=== PATIENT | male | born 1960 | race Caucasian/White ===

== ENCOUNTER 2017-03-03 15:05 | Emergency (ER) | payer OTHER, BC ==
[2017-03-03 15:15] VITALS: BP 135/99
[2017-03-03] MEDS ORDERED: Bacitracin/Neomycin/Polymyxin B Oint 0.9 GM U/D Packet ONE (15:37)
--- NOTE | 2017-03-03 15:45 | EDM.PDOC ---
ED HPI GENERAL MEDICAL PROBLEM - General Chief Complaint: Laceration Stated Complaint: LT LITTLE FINGER Time Seen by Provider: 03/03/17 15:20 Source of Information: Reports: Patient History Limitations: Reports: No Limitations - History of Present Illness INITIAL COMMENTS - FREE TEXT/NARRATIVE: Patient presents with complaints of left finger pain. Crushed it on a rafy at work. Did avulse the skin, bled for a considerable amount of time due to being on Coumadin. Does have good range of motion but with discomfort. Has noted blood under the nail now as well. Tetanus is current. 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(s) Left 5-Little finger Pain Score (Numeric/FACES): 3 - Related Data Allergies Allergy/AdvReac Type Severity Reaction Status Date / Time codeine Allergy Syncope Verified 03/03/17 15:15 morphine Allergy Syncope Verified 03/03/17 15:15 Home Meds: Home Meds Hydrocodone/Acetaminophen [Hydrocodon-Acetaminophen 5-325] 5 mg PO BID PRN 03/02 [History] Hydrocodone/Acetaminophen [Lortab 7.5-325 mg Tablet] 7.5 mg PO Q6HR PRN [History] Phenytoin Sodium Extended [Dilantin] 300 mg PO BID 03/02/15 [History] Warfarin [Coumadin] 10 mg PO DAILY 03/02/15 [History] Past Medical History 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 Respiratory History: Reports: Sleep Apnea Neurological History: Reports: Seizure Hematologic History: Reports: Anticoagulation Therapy - Past Surgical History Cardiovascular Surgical History: Reports: Other (See Below) Other Cardiovascular Surgeries/Procedures: IVC filter Social & Family History - Tobacco Use Smoking Status *Q: Former Smoker Years of Tobacco use: 30 Used Tobacco, but Quit: Yes Month Tobacco Last Used: 2010 - Caffeine Use Caffeine Use: Reports: Coffee, Energy Drinks, Tea - Recreational Drug Use Recreational Drug Use: No ED ROS GENERAL - Review of Systems Review Of Systems: ROS reveals no pertinent complaints other than HPI. ED EXAM, SKIN/RASH Exam: See Below Exam Limited By: No Limitations General Appearance: Alert, WD/WN, No Apparent Distress Extremities: Normal Range of Motion, Normal Capillary Refill, Redness Neurological: Alert, Oriented Location, Skin: Other (left 5th finger has 0.3 area of skin that is avulsed. Scant amount of bleeding at this point. Good flexion and extension of his distal joint of his left 5th digit.) Characteristics: Other (irregular) Course - Vital Signs Last Recorded V/S: Last Vital Signs Temp 98.8 F 03/03/17 15:11 Pulse 82 03/03/17 15:11 Resp 18 03/03/17 15:11 BP 135/99 H 03/03/17 15:11 Pulse Ox 96 03/03/17 15:11 - Orders/Labs/Meds Orders: Active Orders 24 hr Category Date Time Status Fingers Fifth Digit Lt F4 [CR] Stat Exams 03/03/17 15:24 Taken Meds: Medications Discontinued Medications Generic Name Dose Route Start Last Admin Trade Name Freq PRN Reason Stop Dose Admin Neomycin/Polymyxin/Bacitracin Confirm 03/03/17 15:37 03/03/17 15:40 Triple Antibiotic Oint Administered 03/03/17 15:38 1 each Dose Administration 1 each .ROUTE .STK-MED ONE - Re-Assessments/Exams Free Text/Narrative Re-Assessment/Exam: 03/03/17 Xrays of finger are negative Departure - Departure Time of Disposition: 15:44 Disposition: Home, Self-Care 01 Condition: Good Clinical Impression: Abrasion, Contusion - Discharge Information Instructions: Puncture Wound, [id number] Referrals: PCP,None [Primary Care Provider] - Forms: ED Department Discharge Additional Instructions: 1. Keep wound clean and dry 2. Keep wound covered when needed 3. Follow up if any redness, drainage, concerns of infection 4. Contact us with any questions. - My Orders Last 24 Hours: My Active Orders 03/03/17 15:24 Fingers Fifth Digit Lt F4 [CR] Stat - Assessment/Plan Last 24 Hours: My Active Orders 03/03/17 15:24 Fingers Fifth Digit Lt F4 [CR] Stat
== END 2017-03-03 16:05 | disposition home or self-care (01) ==
LOC: CC.ED 15:05
DX: S61.207A Unspecified open wound of left little finger without damage to nail, initial encounter (principal); T14.8 Other injury of unspecified body region; Z88.5 Allergy status to narcotic agent; Z79.01 Long term (current) use of anticoagulants; Z86.79 Personal history of other diseases of the circulatory system; Z87.891 Personal history of nicotine dependence; W23.0XXA Caught, crushed, jammed, or pinched between moving objects, initial encounter
CPT/HCPCS: 73140-F4; 99282

== ENCOUNTER 2017-06-19 09:11 | Emergency (ER) | payer BC ==
[2017-06-19 09:18] VITALS: BP 149/109
--- NOTE | 2017-06-19 11:07 | EDM.PDOC ---
ED HPI GENERAL MEDICAL PROBLEM - General Chief Complaint: Neurological Problem Stated Complaint: PASSED OUT AND FELL ON HIS FACE Time Seen by Provider: 06/19/17 09:35 Source of Information: Reports: Patient History Limitations: Reports: No Limitations - History of Present Illness INITIAL COMMENTS - FREE TEXT/NARRATIVE: Doron is a pleasant 56 year old male who presents to the ER via private vehicle after suffering a seizure that caused him to fall. He does report a history of seizures, but he has not had one for about 3 years. He reports he has had "test after test" in the past but they have never found a reason for his seizures. He reports he typically can feel a seizure coming on as he experiences some nausea and lightheadedness prior. He did experience these symptoms prior to episode today, but reports he did not have enough time to sit down. He reports he was at work, felt the symptoms, tried to sit down, and the next thing he remembers he woke up on the floor. He reports he must've landed face first, as he knocked out his front tooth and has swelling to his forehead, nose, and lip. He did have some bleeding. He is on Coumadin for a bleeding disorder. He has been taking 300 mg of dilantin twice daily. His last dilantin level was subtherapeutic. He has not had it checked in over a year. He reports he has been taking his seizure medications as directed. Did not miss any doses. Onset: Sudden Onset Date: 06/19/17 Onset Time: 09:00 Duration: Resolved Prior to Arrival Location: Reports: Head Associated Symptoms: Reports: Seizure. Denies: Confusion, Chest Pain, Cough, cough w sputum, Diaphoresis, Fever/Chills, Headaches, Loss of Appetite, Malaise , Nausea/Vomiting, Rash, Shortness of Breath, Syncope, Weakness Middle Face Pain Score (Numeric/FACES): 4 - Related Data Allergies Allergy/AdvReac Type Severity Reaction Status Date / Time codeine Allergy Syncope Verified 06/19/17 09:22 morphine Allergy Syncope Verified 06/19/17 09:22 Home Meds: Home Meds Hydrocodone/Acetaminophen [Hydrocodon-Acetaminophen 5-325] 5 mg PO BID PRN 03/02 [History] Hydrocodone/Acetaminophen [Lortab 7.5-325 mg Tablet] 7.5 mg PO Q6HR PRN [History] Phenytoin Sodium Extended [Dilantin] 300 mg PO BID 03/02/15 [History] Warfarin [Coumadin] 10 mg PO DAILY 03/02/15 [History] levETIRAcetam [Keppra] 500 mg PO BID #30 tablet 06/19/17 [Rx] Past Medical History 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 Respiratory History: Reports: Sleep Apnea Neurological History: Reports: Seizure Hematologic History: Reports: Anticoagulation Therapy - Past Surgical History Cardiovascular Surgical History: Reports: Other (See Below) Other Cardiovascular Surgeries/Procedures: IVC filter Social & Family History - Tobacco Use Smoking Status *Q: Never Smoker Years of Tobacco use: 30 Used Tobacco, but Quit: Yes Month Tobacco Last Used: 2010 - Caffeine Use Caffeine Use: Reports: None - Recreational Drug Use Recreational Drug Use: No ED ROS GENERAL - Review of Systems Review Of Systems: See Below Constitutional: Reports: No Symptoms. Denies: Fever, Chills, Malaise, Weakness , Fatigue HEENT: Reports: Dental Pain, Nose Pain. Denies: Ear Discharge, Ear Pain, Eye Pain, Nosebleed, Vision Change Respiratory: Reports: No Symptoms. Denies: Shortness of Breath, Cough Cardiovascular: Reports: No Symptoms. Denies: Chest Pain, Blood Pressure Problem, Claudication, Dyspnea on Exertion, Edema, Lightheadedness, Orthopnea, Palpitations, PND, Syncope Endocrine: Reports: No Symptoms GI/Abdominal: Reports: No Symptoms. Denies: Abdominal Pain, Diarrhea, Nausea, Vomiting : Reports: No Symptoms Musculoskeletal: Reports: No Symptoms Skin: Reports: No Symptoms Neurological: Reports: Headache, Seizure. Denies: Confusion, Dizziness, Numbness, Paresthesia, Pre-Existing Deficit, Syncope, Tingling, Tremors, Trouble Speaking, Difficulty Walking, Weakness, Change in Speech, Gait Disturbance Psychiatric: Reports: No Symptoms Hematologic/Lymphatic: Reports: Other (bleeding disorder, chronic anticoagulation) Immunologic: Reports: No Symptoms - Physical Exam Exam: See Below Exam Limited By: No Limitations General Appearance: Alert, WD/WN, No Apparent Distress Eye Exam: Bilateral Eye: EOMI, Normal Fundi, Normal Inspection, PERRL Ears: Normal External Exam, Normal Canal, Hearing Grossly Normal, Normal TMs Nose: Normal Mucosa, Nasal Tenderness, Nasal Swelling. No: Nasal Deformity Throat/Mouth: Normal Gums, Inflammation (right upper lip), Other (missing left front tooth, patient report was a prosthetic tooth). No: Evidence of Tongue Biting Head Exam: Normocephalic, Facial Abrasions, Facial Tenderness Neck: Normal Inspection, Supple, Non-Tender, Full Range of Motion Respiratory/Chest: No Respiratory Distress, Lungs Clear, Normal Breath Sounds, No Accessory Muscle Use, Chest Non-Tender Cardiovascular: Normal Peripheral Pulses, Regular Rate, Rhythm, No Edema, No Gallop, No JVD, No Murmur, No Rub Neuro Exam (Abbreviated): Alert, Oriented, CN II-XII Intact, Normal Cognition, Normal Gait, Normal Reflexes, No Motor/Sensory Deficits, Memory Loss Recent Events (does not remember falling and hitting floor). No: Inattentive, Confused , Disoriented, Slow to Respond, Unresponsive, Abnormal Gait, Abnormal Reflexes, Sensory/Motor Deficit Back Exam: Normal Inspection, Full Range of Motion Psychiatric: Normal Affect, Normal Mood Course - Vital Signs Last Recorded V/S: Last Vital Signs Temp 97.7 F 06/19/17 09:15 Pulse 100 06/19/17 09:15 Resp 20 06/19/17 09:15 BP 149/109 H 06/19/17 09:15 Pulse Ox 95 06/19/17 09:15 - Orders/Labs/Meds Orders: Active Orders 24 hr Category Date Time Status Head wo Cont [CT] Stat Exams 06/19/17 09:30 Taken Nasal Bone Min 3V [CR] Stat Exams 06/19/17 09:29 Taken PHENYTOIN [REF] Stat Lab 06/19/17 09:55 Received Labs: Laboratory Tests 06/19/17 Range/Units 09:52 PT 25.4 H (9.7-12.3) SEC INR 2.29 H (0.92-1.18) - Radiology Interpretation Free Text/Narrative:: Head Ct report called by radiology. No acute hemorrhage identifity. Normal head CT. CT Results Date: 06/19/17 CT Results Time: 10:10 - Re-Assessments/Exams Free Text/Narrative Re-Assessment/Exam: Patient does not want to have lab work done due to cost. Discussed that it is important to check INR, as well as dilantin level. Patient agreeable to these labs only. Consulted with Tk Lima V (neurology). She recommends starting Keppra and weaning patient off of Dilantin, as he is already at a high dose of dilantin and has been subtherapeutic. She also recommends giving patient 1-2 days of ativan 2 mg BID until Keppra has been taken for a few doses. Recommends referral to Epilepsy clinic and NO driving. Head CT, Nose Xray results, and neurology recommendations discussed with patient who verbalized understanding. Departure - Departure Time of Disposition: 11:04 Disposition: Home, Self-Care 01 Condition: Good Clinical Impression: Seizure Abrasion head Qualifiers: Encounter type: initial encounter Qualified Code(s): S00.91XA - Abrasion of unspecified part of head, initial encounter - Discharge Information Prescriptions: levETIRAcetam [Keppra] 500 mg PO BID #30 tablet Instructions: Seizure, Adult, [id number] Referrals: Dileep Simental PA-C [Physician Plant Superintendent] - Forms: ED Department Discharge Additional Instructions: Ativan twice daily for the next two days. This will make you sleepy. Start taking Keppra twice daily. Ice to lip, nose, and forehead a couple times a day until swelling resolves. Tylenol as needed for pain. NO DRIVING until neurology ok's. 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 Referral placed to neurology at [facility]. Will call with appointment. Follow up with PCP in next week. - Problem List & Annotations (1) Seizure SNOMED Code(s): 50827095 Code(s): R56.9 - UNSPECIFIED CONVULSIONS Status: Acute (2) Abrasion head SNOMED Code(s): 776319580 Code(s): S00.91XA - ABRASION OF UNSPECIFIED PART OF HEAD, INITIAL ENCOUNTER Status: Acute Qualifiers: Encounter type: initial encounter Qualified Code(s): S00.91XA - Abrasion of unspecified part of head, initial encounter - Problem List Review Problem List Initiated/Reviewed/Updated: Yes - My Orders Last 24 Hours: My Active Orders 06/19/17 09:29 Nasal Bone Min 3V [CR] Stat 06/19/17 09:30 Head wo Cont [CT] Stat 06/19/17 09:55 PHENYTOIN [REF] Stat - Assessment/Plan Last 24 Hours: My Active Orders 06/19/17 09:29 Nasal Bone Min 3V [CR] Stat 06/19/17 09:30 Head wo Cont [CT] Stat 06/19/17 09:55 PHENYTOIN [REF] Stat Plan: Will start patient on Keppra 500 mg PO BID. Will give patient 2 day supply of Ativan 2 mg BID to take until Keppra is effective. Patient will need to be weaned off of Dilantin over at least 4 week time frame due to alf use. Referral to Epilepsy Clinic at [facility]. Patient CANNOT drive until seen by neurologist. Follow up with PCP within next 5 days. Return to ER if increased seizure activity.
== END 2017-06-19 11:12 | disposition home or self-care (01) ==
LOC: CC.ED 09:11
DX: R56.9 Unspecified convulsions (principal); S00.91XA Abrasion of unspecified part of head, initial encounter; Z79.01 Long term (current) use of anticoagulants; Z87.891 Personal history of nicotine dependence; Z88.5 Allergy status to narcotic agent; W19.XXXA Unspecified fall, initial encounter
CPT/HCPCS: 36415; 70160; 70450; 80185; 85610; 99284

== ENCOUNTER → 2018-05-31 | Day surgery (SDC) | payer OTHER, BC ==
[~2018-05-31] MED LIST: Lactated Ringers 1,000 ML IV SCH; Lidocaine 1% with EPINEPHrine 1:100,000 20 ML MDV ONE; Midazolam 1 MG/ML 2 ML SDV IV ONE; Ondansetron 4 MG/2 ML SDV IV ONE; Propofol 200 MG/20 ML SDV IV ONE; ceFAZolin 1 GM Vial ONE; fentaNYL 100 MCG/2 ML SDV IV ONE
[2018-05-31 12:33] VITALS: BP 142/96
--- NOTE | 2018-05-31 12:47 | OR ---
DATE OF OPERATION: 05/31/2018 PREOPERATIVE DIAGNOSIS: UMBILICAL HERNIA. POSTOPERATIVE DIAGNOSIS: UMBILICAL HERNIA. SURGEON: Javon Johnson MD PROCEDURE: OPEN REPAIR OF LARGE UMBILICAL HERNIA. ANESTHESIA: General. ESTIMATED BLOOD LOSS: Minimum. SPECIMEN: None. INDICATION FOR PROCEDURE: This 57-year-old male has a large umbilical hernia that is symptomatic. DESCRIPTION OF PROCEDURE: After adequate preparation, an infraumbilical semicircular incision was made below the umbilicus, and this was carried down to the linea alba. The hernia sac was dissected free from the umbilical skin and the fascial margins were incised. This allowed me to reduce the hernia back into the abdominal cavity. The sac was not violated. The hernia defect measured about 2.5 cm. He had good thick fascial margins. I decided not to use mesh. Interrupted 0 Ethibond sutures were used to close this hernia in a transverse fashion, about 8 stitches were used. This was reinforced with an 0 Vicryl over the top of this, [id number], through the fascial layers and tied to help relieve tension on the Ethibond sutures. The subcutaneous space was closed with Vicryl and the skin with Monocryl. The wound was dressed with Dermabond. BOUCHRA/ELEANOR /[id number]
== END ==
LOC: CC.SDS 07:53
PROVIDERS: ATTEND Surgery
DX: K42.9 Umbilical hernia without obstruction or gangrene (principal)
CPT/HCPCS: 36415; 49585; 85610; J2250; J2405; J2704; J3010

== ENCOUNTER → 2018-08-02 | Day surgery (SDC) | payer OTHER ==
[~2018-08-02] MED LIST changes: -Lidocaine 1% with EPINEPHrine 1:100,000 20 ML MDV ONE; -Midazolam 1 MG/ML 2 ML SDV IV ONE; -Ondansetron 4 MG/2 ML SDV IV ONE; -Propofol 200 MG/20 ML SDV IV ONE; -ceFAZolin 1 GM Vial ONE; -fentaNYL 100 MCG/2 ML SDV IV ONE
[2018-08-02 10:59] VITALS: BP 128/86
== END ==
LOC: CC.SDS 09:35
PROVIDERS: ATTEND Surgery
DX: T81.89XA Other complications of procedures, not elsewhere classified, initial encounter (principal); Z53.8 Procedure and treatment not carried out for other reasons
CPT/HCPCS: 36415; 85610; J7120

== ENCOUNTER 2023-08-29 08:25 | Emergency (ER) | payer BC ==
[2023-08-29 11:12] VITALS: BP 175/100; PULSE 71
[2023-08-29 11:13] LABS: BASOPHILS PERCENT AUTO 0.7 % (0-1); EOSINOPHILS PERCENT AUTO 3.5 % (0-6); HEMATOCRIT 45.3 % (42.0-52.0); HEMOGLOBIN 15.1 g/dL (14.0-18.0); IMMATURE GRAN PERCENT AUTO 0.2 % (0.0-4.9); LYMPHOCYTES ABSOLUTE AUTO 1.56 10^3/uL (0.60-5.00); LYMPHOCYTES PERCENT AUTO 28.6 % (24-44); MEAN CORPUSCULAR HEMOGLOBIN 29.9 pg (27.0-32.0); MEAN CORPUSCULAR HGB CONC 33.3 g/dL (32.0-36.0); MEAN CORPUSCULAR VOLUME 89.7 fL (83.0-97.0); MONOCYTES PERCENT AUTO 9.4 % (0-10); NEUTROPHILS ABSOLUTE AUTO 3.14 x10^3/uL (1.80-8.00); NEUTROPHILS PERCENT AUTO 57.6 % (41-71); PLATELET COUNT,PLT 177 10^3/uL (150-400); RED BLOOD CELL COUNT 5.05 x10^6/uL (4.50-6.00); WHITE BLOOD CELL COUNT,WBC 5.5 10^3/uL (4.0-11.0)
[2023-08-29 11:14] LABS: BASOPHILS ABSOLUTE AUTO 0.04 10^3/uL (0.00-0.50); EOSINOPHILS ABSOLUTE AUTO 0.19 10^3/uL (0.00-1.50); IMMATURE GRAN ABSOLUTE AUTO 0.01 10^3/uL (0.00-0.49); INR 2.01 (0.92-1.18); MONOCYTES ABSOLUTE AUTO 0.51 10^3/uL (0.00-1.50); PROTHROMBIN TIME 20.4 SEC (9.3-11.3)
[2023-08-29 11:15] LABS: ALBUMIN 3.3 g/dL (3.4-5.0); EST CRCL DRUG DOSING (CG) 85.14 mL/min; POTASSIUM,K 4.3 mEq/L (3.5-5.0)
[2023-08-29 11:16] LABS: BILIRUBIN TOTAL 0.8 mg/dL (0.0-1.0); PROTEIN TOTAL,TP 7.3 g/dL (6.4-8.2)
[2023-08-29 11:17] LABS: C-REACTIVE PROTEIN 0.49 mg/dL (<=0.50)
== END 2023-08-29 11:30 | disposition critical access hospital (66) ==
LOC: CC.ED 08:25
DX: K92.2 Gastrointestinal hemorrhage, unspecified (principal); I10 Essential (primary) hypertension; Z88.5 Allergy status to narcotic agent; Z88.8 Allergy status to other drugs, medicaments and biological substances; Z79.01 Long term (current) use of anticoagulants; Z79.899 Other long term (current) drug therapy
CPT/HCPCS: 36415; 74177; 80053; 82272; 83735; 85025; 85610; 86140; 99285

== ENCOUNTER 2023-12-19 10:47 | Day surgery (SDC) | payer BC ==
[2023-12-19 11:28] VITALS: BP 131/84; PULSE 82
[2023-12-19] MEDS: Lidocaine 1% 5 ML VIAL INJECT ONE ×2 (11:45→11:46)
== END 2023-12-19 12:24 | disposition home or self-care (01) ==
LOC: CC.SDS 10:47
PROVIDERS: ATTEND Family Medicine
DX: I87.2 Venous insufficiency (chronic) (peripheral) (principal); I83.92 Asymptomatic varicose veins of left lower extremity; Z88.5 Allergy status to narcotic agent; Z79.899 Other long term (current) drug therapy; Z79.01 Long term (current) use of anticoagulants; Z86.16 Personal history of COVID-19
CPT/HCPCS: C1888; J3490

== ENCOUNTER 2023-12-26 11:01 | Day surgery (SDC) | payer BC ==
[2023-12-26] MEDS: Lidocaine 1% 30 ML SDV SUBCUT ONE ×3 (12:08→12:24)
[2023-12-26 13:27] VITALS: BP 169/105; PULSE 77
== END 2023-12-26 13:13 | disposition home or self-care (01) ==
LOC: CC.SDS 11:01
PROVIDERS: ATTEND Family Medicine
DX: I87.2 Venous insufficiency (chronic) (peripheral) (principal)
CPT/HCPCS: 36482; C1888; J3490

== ENCOUNTER → 2024-01-16 | Day surgery (SDC) | payer BC ==
[2024-01-16] MEDS: Lidocaine 1% 5 ML VIAL INJECT ONE (12:02)
== END ==
LOC: CC.SDS 11:30
PROVIDERS: ATTEND Family Medicine
DX: I87.2 Venous insufficiency (chronic) (peripheral) (principal); I83.91 Asymptomatic varicose veins of right lower extremity; Z88.5 Allergy status to narcotic agent; Z79.899 Other long term (current) drug therapy; Z79.01 Long term (current) use of anticoagulants; Z86.16 Personal history of COVID-19
CPT/HCPCS: C1888; J3490

== ENCOUNTER 2024-03-18 11:14 | Inpatient (IN) | payer BC ==
[2024-03-18 11:56] LABS: BASOPHILS ABSOLUTE AUTO 0.03 10^3/uL (0.00-0.50); BASOPHILS PERCENT AUTO 0.5 % (0-1); EOSINOPHILS ABSOLUTE AUTO 0.31 10^3/uL (0.00-1.50); EOSINOPHILS PERCENT AUTO 4.9 % (0-6); HEMATOCRIT 43.4 % (42.0-52.0); HEMOGLOBIN 14.3 g/dL (14.0-18.0); IMMATURE GRAN ABSOLUTE AUTO 0.02 10^3/uL (0.00-0.49); IMMATURE GRAN PERCENT AUTO 0.3 % (0.0-4.9); LYMPHOCYTES ABSOLUTE AUTO 1.29 10^3/uL (0.60-5.00); LYMPHOCYTES PERCENT AUTO 20.4 % (24-44); MEAN CORPUSCULAR HEMOGLOBIN 29.5 pg (27.0-32.0); MEAN CORPUSCULAR HGB CONC 32.9 g/dL (32.0-36.0); MEAN CORPUSCULAR VOLUME 89.7 fL (83.0-97.0); MONOCYTES ABSOLUTE AUTO 0.47 10^3/uL (0.00-1.50); MONOCYTES PERCENT AUTO 7.4 % (0-10); NEUTROPHILS PERCENT AUTO 66.5 % (41-71); PLATELET COUNT,PLT 273 10^3/uL (150-400); RED BLOOD CELL COUNT 4.84 x10^6/uL (4.50-6.00); WHITE BLOOD CELL COUNT,WBC 6.3 10^3/uL (4.0-11.0)
[2024-03-18 12:10] LABS: ALBUMIN 3.1 g/dL (3.4-5.0); BILIRUBIN TOTAL 0.7 mg/dL (0.0-1.0); C-REACTIVE PROTEIN 3.12 mg/dL (<=0.50); CALCIUM 8.7 mg/dL (8.4-10.1); CREATININE 1.2 mg/dL (0.7-1.3); EST CRCL DRUG DOSING (CG) 70.06 mL/min; MAGNESIUM 1.6 mg/dL (1.8-2.4); PROTEIN TOTAL,TP 7.5 g/dL (6.4-8.2)
[2024-03-18 12:17] LABS: INR 2.83 (0.92-1.18); PROTHROMBIN TIME 28.2 SEC (9.3-11.3)
[2024-03-18] MEDS: HYDROmorphone 1 MG/ML Syringe IVPUSH ONE (12:20)
[2024-03-18] MEDS: VANCOmycin 2 GM/400 ML 2 GM in Premix Bag 1 BAG IV ONE (12:20)
[2024-03-18] MEDS ORDERED: Ondansetron 4 MG Tab.DIS PO PRN (12:27)
[2024-03-18] MEDS ORDERED: Ondansetron 4 MG/2 ML SDV IV PRN (12:27)
[2024-03-18] MEDS ORDERED: Acetaminophen 325 MG Tab PO PRN (12:27)
[2024-03-18] MEDS ORDERED: Docusate Sodium 100 MG Cap PO PRN (12:27)
[2024-03-18] MEDS ORDERED: Polyethylene Glycol 3350 Powder 17 GM Packet PO PRN (12:27)
[2024-03-18] MEDS: Magnesium Sulfate/Water 2 GM in Premix Bag 1 BAG IV ONE (14:16)
[2024-03-18] MEDS: levETIRAcetam 500 MG Tab PO SCH (19:26)
[2024-03-18] MEDS: Calcium Carbonate/Vitamin D3 1250 MG-5 MCG Tab PO SCH (19:27)
[2024-03-18] MEDS: VANCOmycin 1.25 GM/250 ML 1.25 GM in Premix Bag 1 BAG IV SCH (23:43)
[2024-03-19] MEDS: Multivitamin Tab PO SCH (07:46)
[2024-03-19] MEDS: Vitamin B Complex Cap PO SCH (07:46)
[2024-03-19] MEDS: Cholecalciferol (Vitamin D3) 25 MCG Tab PO SCH (07:46)
[2024-03-19] MEDS: Lisinopril 20 MG Tab PO SCH (07:46)
[2024-03-19] MEDS: Folic Acid 1 MG Tab PO SCH (07:47)
[2024-03-19 09:01] LABS: BASOPHILS ABSOLUTE AUTO 0.03 10^3/uL (0.00-0.50); BASOPHILS PERCENT AUTO 0.5 % (0-1); EOSINOPHILS ABSOLUTE AUTO 0.28 10^3/uL (0.00-1.50); EOSINOPHILS PERCENT AUTO 4.8 % (0-6); HEMATOCRIT 41.6 % (42.0-52.0); HEMOGLOBIN 13.7 g/dL (14.0-18.0); IMMATURE GRAN ABSOLUTE AUTO 0.02 10^3/uL (0.00-0.49); IMMATURE GRAN PERCENT AUTO 0.3 % (0.0-4.9); LYMPHOCYTES ABSOLUTE AUTO 1.32 10^3/uL (0.60-5.00); LYMPHOCYTES PERCENT AUTO 22.5 % (24-44); MEAN CORPUSCULAR HEMOGLOBIN 29.7 pg (27.0-32.0); MEAN CORPUSCULAR HGB CONC 32.9 g/dL (32.0-36.0); MONOCYTES ABSOLUTE AUTO 0.36 10^3/uL (0.00-1.50); MONOCYTES PERCENT AUTO 6.1 % (0-10); NEUTROPHILS ABSOLUTE AUTO 3.85 x10^3/uL (1.80-8.00); NEUTROPHILS PERCENT AUTO 65.8 % (41-71); PLATELET COUNT,PLT 257 10^3/uL (150-400); RED BLOOD CELL COUNT 4.62 x10^6/uL (4.50-6.00); WHITE BLOOD CELL COUNT,WBC 5.9 10^3/uL (4.0-11.0)
[2024-03-19 09:09] LABS: CALCIUM 8.8 mg/dL (8.4-10.1); CREATININE 1.1 mg/dL (0.7-1.3); EST CRCL DRUG DOSING (CG) 76.42 mL/min; MAGNESIUM 1.9 mg/dL (1.8-2.4); POTASSIUM,K 4.2 mEq/L (3.5-5.0)
[2024-03-19] MEDS: Warfarin 5 MG Tab PO SCH ×2 (09:16→11:10)
[2024-03-19] MEDS: Warfarin 2.5 MG Tab PO SCH ×2 (09:16→11:10)
[2024-03-19] MEDS: Cefepime 1 GM Vial ONE (10:14)
[2024-03-19] MEDS: Sodium Chloride 0.9% 100 ML ONE (10:14)
[2024-03-19] MEDS: Cefepime 1 GM in Sodium Chloride 0.9% 100 ML IV SCH (11:00)
[2024-03-19] MEDS: Acetaminophen/HYDROcodone 325-5 MG Tab PO PRN (23:48)
[2024-03-20] MEDS: Warfarin 5 MG Tab PO SCH (08:13)
[2024-03-21 07:50] LABS: BASOPHILS ABSOLUTE AUTO 0.04 10^3/uL (0.00-0.50); BASOPHILS PERCENT AUTO 0.7 % (0-1); EOSINOPHILS ABSOLUTE AUTO 0.27 10^3/uL (0.00-1.50); EOSINOPHILS PERCENT AUTO 4.5 % (0-6); HEMATOCRIT 42.9 % (42.0-52.0); HEMOGLOBIN 14.2 g/dL (14.0-18.0); IMMATURE GRAN ABSOLUTE AUTO 0.01 10^3/uL (0.00-0.49); IMMATURE GRAN PERCENT AUTO 0.2 % (0.0-4.9); LYMPHOCYTES ABSOLUTE AUTO 1.58 10^3/uL (0.60-5.00); LYMPHOCYTES PERCENT AUTO 26.5 % (24-44); MEAN CORPUSCULAR HEMOGLOBIN 29.5 pg (27.0-32.0); MEAN CORPUSCULAR HGB CONC 33.1 g/dL (32.0-36.0); MEAN CORPUSCULAR VOLUME 89.2 fL (83.0-97.0); MONOCYTES ABSOLUTE AUTO 0.52 10^3/uL (0.00-1.50); MONOCYTES PERCENT AUTO 8.7 % (0-10); NEUTROPHILS ABSOLUTE AUTO 3.54 x10^3/uL (1.80-8.00); NEUTROPHILS PERCENT AUTO 59.4 % (41-71); PLATELET COUNT,PLT 275 10^3/uL (150-400); RED BLOOD CELL COUNT 4.81 x10^6/uL (4.50-6.00)
[2024-03-21 07:58] LABS: CALCIUM 8.9 mg/dL (8.4-10.1); CREATININE 1.1 mg/dL (0.7-1.3); EST CRCL DRUG DOSING (CG) 76.42 mL/min; MAGNESIUM 1.7 mg/dL (1.8-2.4)
[2024-03-21 08:53] VITALS: BP 149/96; PULSE 76
== END 2024-03-21 12:30 | disposition home or self-care (01) | DRG 383 ==
LOC: CC.ED 11:14 → UNDOADMIN 11:32 → CC.MS 11:32
PROVIDERS: ADMIT Nurse Practitioner; ATTEND Nurse Practitioner
DX: L03.116 Cellulitis of left lower limb (principal); G47.30 Sleep apnea, unspecified; I10 Essential (primary) hypertension; R56.9 Unspecified convulsions; R79.82 Elevated C-reactive protein (CRP); Z88.5 Allergy status to narcotic agent; Z79.01 Long term (current) use of anticoagulants; Z79.899 Other long term (current) drug therapy
CPT/HCPCS: 29580-GP; 36415; 80048; 80053; 80202; 83605; 83735; 85025; 85610; 86140; 87040; 87070; 87077; 87186; 87205; 97161-GP; 97597-GP; 97598-GP; 99223; 99232; 99233; 99239; 99284; A9270-GY; J0692; J1170; J3372; J3475; J3490